=== PATIENT | female | born 1965 | race Asian ===

== ENCOUNTER 2016-09-26 09:28 | Emergency (ER) | payer OTHER ==
[~2016-09-26] VITALS: Ht 152.4 cm; Wt 93.0 kg
[2016-09-26] MEDS ORDERED: LOSARTAN POTASS25 MG ORAL (09:36)
[2016-09-26] MEDS ORDERED: AMLODIPINE BESY10 MG ORAL (09:36)
[2016-09-26] MEDS ORDERED: ECOTRIN325 MG ORAL (09:36)
--- NOTE | 2016-09-26 11:02 | Diagnostic Imaging Report ---
Indication: TRAUMA Technique: 3 views of the left ankle Comparison: none Findings: Soft tissue swelling overlies lateral malleolus. No acute fractures. No dislocations. Joint spaces are preserved. There is a small plantar spur. Impression: Soft tissue swelling. No acute bony trauma
[2016-09-26] MEDS ORDERED: LIPITOR20 MG ORAL (11:06)
--- NOTE | 2016-09-26 11:51 | Emergency Room Report ---
History of Present Illness General Chief Complaint: Lower Extremity Injury Source: Patient Present Illness HPI This patient states that last night she twisted her ankle. She states she is trying to move a heavy object and lost her balance and twisted her left ankle. She has swelling and pain. She is able to ambulate. She has no other injuries or complaints. Allergies: Coded Allergies: No Known Allergies (Unverified , 09/26/16) Patient History Past Medical History: see triage record, HTN Social History: Denies: alcohol use, drug use, smoking Last Menstrual Period: menopause Now: No : 3 Para: 3 Reviewed Nursing Documentation: PMH: Agreed, PSxH: Agreed Nursing Documentation-PMH Past Medical History: No History, Except For Hx Hypertension: Yes Review of Systems All Other Systems: negative except mentioned in HPI Physical Exam Vital Signs Date Time Temp Pulse Resp B/P Pulse Ox O2 Delivery O2 Flow Rate FiO2 09/26/16 09:32 98.1 82 16 146/96 95 Room Air Sp02 EP Interpretation: reviewed, normal General Appearance: no apparent distress, alert, GCS 15, non-toxic Head: normocephalic, atraumatic Eyes: bilateral eye PERRL, bilateral eye normal inspection ENT: hearing grossly normal, normal pharynx, no angioedema, normal voice Neck: full range of motion, supple/symm/no masses Respiratory: no respiratory distress, no retraction, no accessory muscle use, speaking full sentences Rectal: deferred Musculoskeletal: back normal, gait/station normal, normal range of motion, swelling - L. ankle. TTP Anteriorly in ST Neurologic: alert, oriented x3, responsive, motor strength/tone normal, sensory intact, speech normal Psychiatric: judgement/insight normal, memory normal, mood/affect normal, no suicidal/homicidal ideation Skin: normal color, no rash, warm/dry, well hydrated Medical Decision Making Diagnostic Impression: Primary Impression: Ankle sprain ER Course This patient has a clinical presentation consistent with ankle sprain. The patient did have significant tenderness in an antalgic gait sided obtain imaging which showed no acute fracture. The patient was placed in an ankle splint. No emergency medical condition is identified at this time. I warned the patient that plain x-rays have a significant false-negative rate. Factors, significant soft tissue injuries, and other pathology may be present even though not seen on x-ray. Injuries serious enough to ultimately require surgery may be present with normal x-rays. This can occur because some fractures or not initially visible on plain film x-rays or, rarely, the radiologist may discover a subtle fracture that I missed on my preliminary read. It was explained that close outpatient followup is required to evaluate this possibility. If all symptoms resolve or improve significantly in the coming weeks, no further testing is needed. However, if the pain/symptoms persist, additional studies such as MRI/CT or repeat x-ray would be needed to rule out the possibility of serious soft tissue injury. The patient agreed to followup as directed. Other X-Ray Diagnostic Results X-Ray ordered: L. Ankle # of Views/Limited Vs Complete: Complete EP Interpretation: Yes Interpretation: no fractures, no dislocation, other - ST swelling Indication: Pain Impression: No acute disease Interpreting ER Provider: Letha Last Vital Signs Date Time Temp Pulse Resp B/P Pulse Ox O2 Delivery O2 Flow Rate FiO2 09/26/16 09:32 98.1 82 16 146/96 95 Room Air Status: improved Disposition: HOME, SELF-CARE Condition: Improved Referrals: NOT CHOSEN IPA/,REFERRING (PCP) Patient Instructions: Ankle Sprain JAYMIE PRATT D.O. Sep 26, 2016 11:51
[2016-09-26] MEDS ORDERED: IBUPROFEN600 MG ORAL (11:53)
[2016-09-26 12:01] VITALS: BP 140/96
== END 2016-09-26 12:03 | disposition home or self-care (01) ==
LOC: EMR 10:03
DX: S93.402A Sprain of unspecified ligament of left ankle, initial encounter (principal); I10 Essential (primary) hypertension; X58.XXXA Exposure to other specified factors, initial encounter; Y93.9 Activity, unspecified; Y92.9 Unspecified place or not applicable
CPT/HCPCS: 99283